=== PATIENT | female | born 1945 | race Caucasian/White ===

== ENCOUNTER 2017-04-18 17:09 | Emergency (ER) | payer OTHER, MEDICAID ==
[2017-04-18 17:21] VITALS: RESP 16
--- NOTE | 2017-04-18 17:27 | EDPHY ---
H & P Smoking Status: Former smoker Time Seen by Provider: 04/18/17 17:19 HPI/ROS: CHIEF COMPLAINT: Left knee pain x2 weeks HISTORY OF PRESENT ILLNESS: 71-year-old female arrives via ambulance from the [facility] complaining left knee pain for the past 2 weeks. States that 2 weeks ago she got up and twisted her knee, was evaluated by EMS and had an outpatient x-ray which was apparently negative. Today she got up and twisted me again is complaining of acute left medial knee pain continues swelling. normal temperature. No direct trauma or fall. Resolving ecchymosis to the medial aspect. No anticoagulant use. No fever no chills no flu-like symptoms. PRIMARY CARE PROVIDER: the [facility] REVIEW OF SYSTEMS: A ten point review of systems was performed and is negative with the exception of the items mentioned in the HPI PAST MEDICAL & SURGICAL HISTORY: No pertinent medical or surgical history SOCIAL HISTORY: Nonsmoker lives at the [facility] PHYSICAL EXAM (Prior to examination, patient consented to physical exam, hands were washed and my usual and customary physical exam procedures followed) 1) GENERAL: Well-developed, well-nourished, alert and oriented. Appears to be in no acute distress. 2) HEAD: Normocephalic, atraumatic 3) HEENT: Pupils equal, round, reactive to light bilaterally. Sclera anicteric. 4) NECK: Full range of motion, no meningeal signs. 5) LUNGS: Clear auscultation bilaterally, no wheezes, no rhonchi, no retractions. 6) HEART: Regular rate and rhythm, no murmur, no heave, no gallop. 7) ABDOMEN: No guarding, no rebound, no focal tenderness, negative McBurney's 8) MUSCULOSKELETAL: Left lower extremity: Subacute ecchymosis to the left medial knee. Periarticular edema and effusion noted. Reproducible pain to the medial aspect of range of motion, keeping the knee fully extended. Soft compartments. Negative Homans no palpable cord. No lower extremity edema or asymmetry. DP PT pulses present and brisk distally with brisk capillary refill. Moving all extremities, no focal areas of tenderness, no obvious trauma. No peripheral edema or discoloration. 9) BACK: no visual or palpable abnormality. 10) SKIN: No rash, no petechiae. 11) Psychiatric: Patient is oriented X 3, there is no agitation. DIFFERENTIAL DIAGNOSIS: In no particular order, including, but not limited to, fracture, sprain, strain , DVT,, compartment syndrome (Sunil Aquino) Constitutional: Initial Vital Signs Temperature (C) 37.3 C 04/18/17 17:16 Heart Rate 74 04/18/17 17:16 Respiratory Rate 16 04/18/17 17:16 Blood Pressure 148/93 H 04/18/17 17:16 O2 Sat (%) 92 04/18/17 17:16 O2 Delivery Mode Room Air Allergies/Adverse Reactions: No Known Allergies Allergy (Verified 02/26/12 19:15) Home Medications: Medication Instructions Recorded Aspirin [Aspirin 325 mg (*)] 325 mg PO DAILY PRN 03/11/12 Ferrous Sulfate 325 mg PO BID #0 tablet 03/12/12 MDM/Departure - MDM Imaging Results: Imaging Impressions Knee X-Ray 04/18/17 17:25 Impression: 1. Difficult to exclude an acute femoral condyle impaction injury, although I suspect that this is related to a large hypertrophic ridge rather than an acute impaction. 2. The medial soft tissue swelling, possibly indicating a recurrent medial collateral ligament injury or medial patellar retinaculum injury. Lateral patellar subluxation could be acute or chronic. Images reviewed by myself (Sunil Aquino) Procedures: Procedure: Arthrocentesis. Indication: Evaluation for the possibility of septic joint and for therapeutic relief of symptoms. Risks, benefits, alternatives of the procedure were discussed with the patient and consent obtained. The patient was prepped and draped in the usual sterile fashion over the medial and lateral joint. Local anesthesia was provided with 1% lidocaine with epinephrine. The joint space was entered with a 18 gauge needle and the patient had a negative aspirate. Patient tolerated procedure well The procedure was performed by myself. (Sunil Aquino) ED Course/Re-evaluation: Patient has been re-evaluated with serial evaluations. I think that septic arthritis is less than likely in this patient in presence of negative aspirate, normal color, normal temperature, no flu-like symptoms, no fever no chills, symptoms for the past 2 weeks with no progression. I have placed her in a knee immobilizer and recommend orthopedic follow-up. Also provided her usual and customary orthopedic precautions and instructions. She feels comfortable being discharged. I do not think that emergent MRI indicated. She feels safe being discharged back to her living facility. (Sunil Aquino) The patient was evaluated and managed by the physician operator assistant i cementing. I have reviewed this chart and I agree with the findings and plan of care as documented , as indicated by my signature. I am the secondary supervising physician. ( Donna Gonzalez) - Depart Disposition: Home, Routine, Self-Care Clinical Impression: Swelling of left knee joint Condition: Good Instructions: Swollen Knee Joint (ED), Swollen Joint (ED) Additional Instructions: Return to the ER immediately if you experience discoloration, have worsening pain, numbness, tingling, or any other symptoms that concern you. If you received x-rays in the emergency department today, be advised, that ligamentous , tendon, muscular, and other non-bony injury cannot be fully ruled out. Try to keep your affected extremity elevated above the level of your chest, and keep cold packs on the affected area, for the next 48 hours. Referrals: Ricardo Mesa MD [Medical Doctor] - 2-3 days, call for appt.
[2017-04-18 18:19] VITALS: BP 153/105; PULSE 97; TEMP 98.4; O2SAT 91
== END 2017-04-18 18:48 | disposition home or self-care (01) ==
LOC: EDUNIT#
PROC: 0S9D3ZZ Drainage of Left Knee Joint, Percutaneous Approach (ICD-10-PCS; principal; 2017-04-18)
DX: M25.462 Effusion, left knee (principal); Z87.891 Personal history of nicotine dependence; X58.XXXA Exposure to other specified factors, initial encounter